=== PATIENT | male | born 1955 | race Caucasian/White ===

== ENCOUNTER 2019-07-21 20:52 | Emergency (ER) | payer BC, MEDICARE ==
[2019-07-21] MEDS ORDERED: Sodium Chloride 0.9% 10 ML Syringe FLUSH PRN (21:12)
[2019-07-21] MEDS ORDERED: Sodium Chloride 0.9% 1,000 ML IV ONE (21:13)
[2019-07-21] MEDS ORDERED: Ketorolac 15 MG/ML SDV IVPUSH ONE (21:13)
[2019-07-21] MEDS ORDERED: HYDROmorphone 1 MG/ML Syringe IVPUSH ONE (21:14)
[2019-07-21] MEDS ORDERED: Iopamidol 612 MG/ML 100 ML Bottle IVPUSH ONE (21:43)
[2019-07-21 21:54] LABS: CHLORIDE,CL 100 mmol/L (98-107); SODIUM,NA 138 mmol/L (136-145)
[2019-07-21] MEDS ORDERED: Take Home: Acetaminophen/HYDROcodone 325-10 MG, 5 Tab Pack PO ONE (22:50)
[2019-07-21] MEDS ORDERED: Tamsulosin 0.4 MG Cap.ER PO ONE (22:50)
--- NOTE | 2019-07-21 23:19 | EDM.PDOC ---
ED HPI GENERAL MEDICAL PROBLEM - General Chief Complaint: Abdominal Pain Stated Complaint: PAIN ON L SIDE OF ABDOMEN Time Seen by Provider: 07/21/19 20:52 Source of Information: Reports: Patient History Limitations: Reports: No Limitations - History of Present Illness INITIAL COMMENTS - FREE TEXT/NARRATIVE: Pt. presents to ER with complaints of L sided flank pain. Pt. states that the discomfort started at around 10 this AM. He states that he had similar pain about a week or 2 ago. Denies any fever or chills. He states that the discomfort is not made worse with palpation or movement. Denies any hematuria, frequency, urgency, or dysuria. No nausea or vomiting. Pt. denies any chest pain or shortness of breath. No cough or chest congestion. No diarrhea. Denies any melena, hematochezia, or hematemesis. Pt. states that the discomfort is sharp, stabbing type pain. He states that he "cannot get comfortable". He denies any history of kidney stones, but has a family history. Onset: Today Onset Date: 07/21/19 Onset Time: 10:00 Location: Reports: Abdomen, Back Quality: Reports: Sharp, Stabbing, Throbbing Severity: Severe left flank, left lateral side Pain Score (Numeric/FACES): 7 - Related Data Allergies Allergy/AdvReac Type Severity Reaction Status Date / Time codeine Allergy Hives Verified 07/21/19 21:08 latex Allergy Hives Verified 07/21/19 21:08 Home Meds: Home Meds Furosemide [Lasix] 20 mg PO DAILY 07/21/19 [History] Lisinopril 20 mg PO DAILY 07/21/19 [History] Metoprolol Tartrate 50 mg PO BID 07/21/19 [History] Multivitamin [Multi-Vitamin Daily] 1 tab PO DAILY 07/21/19 [History] Potassium Chloride 20 meq PO DAILY 07/21/19 [History] Propylene Glycol/Peg 400 [Systane 0.3-0.4% Eye Drops] 1 drop EYEBOTH QID [History] Past Medical History Cardiovascular History: Reports: High Cholesterol, Hypertension Respiratory History: Reports: Pneumonia, Recurrent, Sleep Apnea Musculoskeletal History: Reports: Other (See Below) Other Musculoskeletal History: Degenertive Joint Disease Psychiatric History: Reports: Depression Endocrine/Metabolic History: Reports: Obesity/BMI 30+, Other (See Below) Other Endocrine/Metabolic History: Septic Arthritis - Infectious Disease History Infectious Disease History: Reports: VRE, Other (See Below) Other Infectious Disease History: Aspergillosis ED ROS GENERAL - Review of Systems Review Of Systems: See Below Constitutional: Reports: No Symptoms HEENT: Reports: No Symptoms Respiratory: Reports: No Symptoms Cardiovascular: Reports: No Symptoms Endocrine: Reports: No Symptoms GI/Abdominal: Reports: Abdominal Pain : Reports: Flank Pain, Other (No testicular pain) Musculoskeletal: Reports: No Symptoms Skin: Reports: No Symptoms Neurological: Reports: No Symptoms Psychiatric: Reports: No Symptoms Hematologic/Lymphatic: Reports: No Symptoms Immunologic: Reports: No Symptoms ED EXAM, GENERAL - Physical Exam Exam: See Below Exam Limited By: No Limitations General Appearance: Alert, WD/WN, No Apparent Distress Throat/Mouth: Normal Inspection, Normal Lips, Normal Teeth, Normal Gums, Normal Oropharynx, Normal Voice, No Airway Compromise Respiratory/Chest: No Respiratory Distress, Lungs Clear, Normal Breath Sounds, No Accessory Muscle Use, Chest Non-Tender Cardiovascular: Normal Peripheral Pulses, Regular Rate, Rhythm, No Edema, No Gallop, No JVD, No Rub Peripheral Pulses: 4+: Radial (R) GI/Abdominal: Normal Bowel Sounds, Soft, Non-Tender, No Organomegaly, No Distention, No Mass (Male) Exam: Deferred Rectal (Males) Exam: Deferred Back Exam: Normal Inspection, Full Range of Motion Extremities: Normal Inspection, Normal Range of Motion, Non-Tender, No Pedal Edema, Normal Capillary Refill Neurological: Alert, Oriented, CN II-XII Intact, Normal Cognition, Normal Gait, Normal Reflexes, No Motor/Sensory Deficits Psychiatric: Normal Affect, Normal Mood Skin Exam: Warm, Dry, Intact, Normal Color, No Rash Course - Vital Signs Last Recorded V/S: Last Vital Signs Temp 36.3 C 07/21/19 20:52 Pulse 93 07/21/19 20:52 Resp 18 07/21/19 20:52 BP 167/91 H 07/21/19 20:52 Pulse Ox 93 L 07/21/19 20:52 - Orders/Labs/Meds Orders: Active Orders 24 hr Category Date Time Status Abdomen Pelvis w Cont [CT] Stat Exams 07/21/19 21:41 Taken Sodium Chloride 0.9% [Saline Flush] Med 07/21/19 21:12 Active 10 ml FLUSH ASDIRECTED PRN Peripheral IV Insertion Adult [OM.PC] Routine Oth 07/21/19 21:12 Ordered Medication Orders Sodium Chloride (Saline Flush) 10 ml FLUSH ASDIRECTED PRN PRN Reason: Keep Vein Open Labs: Laboratory Tests 07/21/19 07/21/19 07/21/19 Range/Units 21:05 21:25 21:25 WBC 11.7 H (4.0-10.0) x10^3/uL RBC 5.06 (4.5-6.0) x10^6/uL Hgb 16.0 (14.0-18.0) g/dL Hct 48.3 (40.0-52.0) % MCV 95.5 H (78.0-93.0) fL MCH 31.6 (26.0-32.0) pg MCHC 33.1 (32.0-36.0) g/dL RDW Coeff of Sebasti[place] 14.2 (10.0-15.0) % Plt Count 138 (130-400) x10^3/uL Neut % (Auto) 75.7 (50.0-80.0) % Lymph % (Auto) 10.3 L (25.0-50.0) % [place] % (Auto) 12.5 H (2.0-11.0) % Eos % (Auto) 1.2 (0.0-4.0) % Baso % (Auto) 0.3 (0.2-1.2) % PT 10.8 (10.0-12.8) SEC INR 1.0 L (2.0-3.5) Sodium (136-145) mmol/L Potassium (3.5-5.1) mmol/L Chloride (98-107) mmol/L Carbon Dioxide (21-32) mmol/L Anion Gap (10-20) mmol/L BUN (7-18) mg/dL Creatinine (0.70-1.30) mg/dL Est Cr Clr Drug Dosing mL/min Estimated GFR (MDRD) Glucose (74-106) mg/dL Calcium (8.5-10.1) mg/dL Corrected Calcium (8.5-10.1) mg/dL Magnesium (1.8-2.4) mg/dL Total Bilirubin (0.2-1.0) mg/dL AST (15-37) U/L ALT (16-63) U/L Alkaline Phosphatase (46-116) U/L C-Reactive Protein (<=0.9) mg/dL Total Protein (6.4-8.2) g/dL Albumin (3.4-5.0) g/dL Globulin Albumin/Globulin Ratio Urine Color Yellow (YELLOW) Urine Appearance Clear (CLEAR) Urine pH 7.0 (5.0-8.0) Ur Specific Qulin 1.020 Urine Protein Negative (NEGATIVE) mg/dL Urine Glucose (UA) Negative (NEGATIVE) mg/dL Urine Ketones Negative (NEGATIVE) mg/dL Urine Occult Blood Negative (NEGATIVE) Urine Nitrite Negative (NEGATIVE) Urine Bilirubin Negative (NEGATIVE) Urine Urobilinogen 0.2 (0.2) EU/dL Ur Leukocyte Esterase Negative (NEGATIVE) Urine RBC 0-5 (NOT SEEN) /HPF Urine WBC 0-5 (NOT SEEN) /HPF Ur Squamous Epith Cells Few H (NEGATIVE) /HPF Urine Bacteria Not seen (NEGATIVE) /HPF Urine Mucus Rare H (NEGATIVE) /LPF 07/21/19 Range/Units 21:25 WBC (4.0-10.0) x10^3/uL RBC (4.5-6.0) x10^6/uL Hgb (14.0-18.0) g/dL Hct (40.0-52.0) % MCV (78.0-93.0) fL MCH (26.0-32.0) pg MCHC (32.0-36.0) g/dL RDW Coeff of Sebastián (10.0-15.0) % Plt Count (130-400) x10^3/uL Neut % (Auto) (50.0-80.0) % Lymph % (Auto) (25.0-50.0) % [place] % (Auto) (2.0-11.0) % Eos % (Auto) (0.0-4.0) % Baso % (Auto) (0.2-1.2) % PT (10.0-12.8) SEC INR (2.0-3.5) Sodium 138 (136-145) mmol/L Potassium 4.0 (3.5-5.1) mmol/L Chloride 100 (98-107) mmol/L Carbon Dioxide 30 (21-32) mmol/L Anion Gap 12.0 (10-20) mmol/L BUN 13 (7-18) mg/dL Creatinine 1.1 (0.70-1.30) mg/dL Est Cr Clr Drug Dosing 80.95 mL/min Estimated GFR (MDRD) > 60 Glucose 129 H (74-106) mg/dL Calcium 9.0 (8.5-10.1) mg/dL Corrected Calcium 9.88 (8.5-10.1) mg/dL Magnesium 2.1 (1.8-2.4) mg/dL Total Bilirubin 0.5 (0.2-1.0) mg/dL AST 43 H (15-37) U/L ALT 56 (16-63) U/L Alkaline Phosphatase 72 (46-116) U/L C-Reactive Protein 1.6 H (<=0.9) mg/dL Total Protein 7.2 (6.4-8.2) g/dL Albumin 2.9 L (3.4-5.0) g/dL Globulin 4.3 Albumin/Globulin Ratio 0.67 Urine Color (YELLOW) Urine Appearance (CLEAR) Urine pH (5.0-8.0) Ur Specific Q[place] Urine Protein (NEGATIVE) mg/dL Urine Glucose (UA) (NEGATIVE) mg/dL Urine Ketones (NEGATIVE) mg/dL Urine Occult Blood (NEGATIVE) Urine Nitrite (NEGATIVE) Urine Bilirubin (NEGATIVE) Urine Urobilinogen (0.2) EU/dL Ur Leukocyte Esterase (NEGATIVE) Urine RBC (NOT SEEN) /HPF Urine WBC (NOT SEEN) /HPF Ur Squamous Epith Cells (NEGATIVE) /HPF Urine Bacteria (NEGATIVE) /HPF Urine Mucus (NEGATIVE) /LPF Meds: Medications Generic Name Dose Route Start Last Admin Trade Name Freq PRN Reason Stop Dose Admin Sodium Chloride 10 ml 07/21/19 21:12 Saline Flush FLUSH ASDIRECTED PRN Keep Vein Open Discontinued Medications Generic Name Dose Route Start Last Admin Trade Name Freq PRN Reason Stop Dose Admin Hydrocodone Bitart/Acetaminophen 1 packet 07/21/19 22:50 07/21/19 23:04 Take Home: Acetaminophen/Hydrocodone 325-10mg PO 07/21/19 22:51 1 packet ONETIME ONE Administration Hydromorphone HCl 1 mg 07/21/19 21:14 07/21/19 21:26 Dilaudid IVPUSH 07/21/19 21:15 1 mg ONETIME ONE Administration Sodium Chloride 1,000 mls @ 1,000 mls/hr 07/21/19 21:13 07/21/19 21:25 Normal Saline IV 07/21/19 22:12 1,000 mls/hr .BOLUS ONE Administration Iopamidol 100 ml 07/21/19 21:43 07/21/19 22:11 Isovue-300 (61%) IVPUSH 07/21/19 21:44 100 ml ONETIME ONE Administration Ketorolac Tromethamine 15 mg 07/21/19 21:13 07/21/19 21:28 Toradol IVPUSH 07/21/19 21:14 15 mg ONETIME ONE Administration Tamsulosin HCl 0.4 mg 07/21/19 22:50 07/21/19 23:04 Flomax PO 07/21/19 22:51 0.4 mg ONETIME ONE Administration - Radiology Interpretation Free Text/Narrative:: CT abdomen and pelvis with contrast obtained and showed 6.7 mm kidney stone at L distal ureter. Departure - Departure Time of Disposition: 23:19 Disposition: Home, Self-Care 01 Clinical Impression: Kidney stone on left side - Discharge Information Instructions: Acetaminophen; Hydrocodone tablets or capsules, Kidney Stones, [id number], Tamsulosin capsules Referrals: Natan Wilson MD [Primary Care Provider] - Forms: ED Department Discharge Additional Instructions: [place] 10/325mg 1 every 4-6 hours as needed for pain Ibuprofen 200mg 2 tabs every 6 hours as needed for pain Flomax 0.4mg 1 tab once daily to assist with passage of the stone Strain urine. Collect any stones and bring them in to the clinic for analysis. Drink plenty of fluids. Follow-up with Dr. Wilson in a week. If the pain gets worse and is not helped by the oral medication, return to ER. - Problem List Review Problem List Initiated/Reviewed/Updated: Yes - My Orders Last 24 Hours: My Active Orders 07/21/19 21:12 Sodium Chloride 0.9% [Saline Flush] 10 ml FLUSH ASDIRECTED PRN Peripheral IV Insertion Adult [OM.PC] Routine 07/21/19 21:41 Abdomen Pelvis w Cont [CT] Stat - Assessment/Plan Last 24 Hours: My Active Orders 07/21/19 21:12 Sodium Chloride 0.9% [Saline Flush] 10 ml FLUSH ASDIRECTED PRN Peripheral IV Insertion Adult [OM.PC] Routine 07/21/19 21:41 Abdomen Pelvis w Cont [CT] Stat Plan: Pt. was given IV dilaudid and toradol and a liter of NS on arrival. Pt. reported complete resolution of symptoms. Pt. was advised to stain urine, collect stones and bring them to clinic for evaluation. He was started on flomax 0.4mg once daily. [place] 10/325mg every 4-6 hours as needed for pain. Return to ER if pain is severe and not helped by the oral pain medication.
--- NOTE | 2019-07-22 08:08 | CT ---
[id number] CT/CT Abdomen Pelvis W IV EXAM: CT Abdomen Pelvis W IV CLINICAL DATA: LEFT SIDE ABDOMINAL PAIN COMPARISON: NO PREVIOUS SIMILAR EXAM IS AVAILABLE. FINDINGS: A 6 mm distal left ureteral calculus is seen on image 136, series 2 There is moderate left-sided hydronephrosis There is stranding around the left kidney There is an indeterminate 2 cm hypodensity in the right lobe of the liver on image 63, series 2 This would benefit from follow-up The gallbladder is not distended The liver and spleen, right kidney, adrenals, pancreas, aorta, and pelvis otherwise are unremarkable The pelvis shows no mass or adenopathy There is no evidence of appendicitis The appendix is seen on images 63 through 80, series 2 IMPRESSION: 6 MM DISTAL LEFT URETERAL CALCULUS MODERATE LEFT-SIDED HYDRONEPHROSIS Lux Hurt MD 07/22/19 0807 Thank you for allowing us to participate in the care of your patient.
== END 2019-07-21 23:20 | disposition home or self-care (01) ==
LOC: VM.ED 20:52
DX: N13.2 Hydronephrosis with renal and ureteral calculous obstruction (principal); I10 Essential (primary) hypertension; E66.9 Obesity, unspecified; Z79.899 Other long term (current) drug therapy; Z88.5 Allergy status to narcotic agent; Z91.040 Latex allergy status
CPT/HCPCS: 74177; 80053; 81001; 83735; 85025; 85610; 86140; 96361; 96374; 96375; 99284-25; A9270-GY; J1170; J1885; J7030; Q9967

== ENCOUNTER 2023-09-30 16:33 | Inpatient (IN) | payer MEDICARE, BC ==
[2023-09-30 17:07] LABS: BASOPHILS PERCENT AUTO 0.4 % (0.2-1.2); EOSINOPHILS ABSOLUTE AUTO 0.9 x10^3/uL (0.0-0.5); EOSINOPHILS PERCENT AUTO 10.1 % (0.0-4.0); HEMATOCRIT 50.3 % (40.0-52.0); HEMOGLOBIN 16.3 g/dL (14.0-18.0); IMMATURE GRAN ABSOLUTE AUTO 0.01 x10^3/uL (0.00-0.07); LYMPHOCYTES ABSOLUTE AUTO 1.7 x10^3/uL (1.0-4.8); MEAN CORPUSCULAR HEMOGLOBIN 32.8 pg (26.0-32.0); MEAN CORPUSCULAR HGB CONC 32.4 g/dL (32.0-36.0); MEAN CORPUSCULAR VOLUME 101.2 fL (78.0-93.0); MONOCYTES ABSOLUTE AUTO 1.2 x10^3/uL (0.0-0.8); MONOCYTES PERCENT AUTO 13.5 % (2.0-11.0); NEUTROPHILS ABSOLUTE AUTO 5.3 x10^3/uL (1.8-7.7); NEUTROPHILS PERCENT AUTO 57.9 % (50.0-80.0); PLATELET COUNT,PLT 121 x10^3/uL (130-400); RED BLOOD CELL COUNT 4.97 x10^6/uL (4.5-6.0); WHITE BLOOD CELL COUNT,WBC 9.2 x10^3/uL (4.0-10.0)
[2023-09-30 17:31] LABS: A/G RATIO 0.77; ALANINE AMINOTRANSFERASE,ALT 74 U/L (16-63); ALBUMIN 3.3 g/dL (3.4-5.0); ALKALINE PHOSPHATASE 89 U/L (46-116); ASPARTATE AMNIOTRANSFERASE,AST 58 U/L (15-37); BILIRUBIN TOTAL 0.4 mg/dL (0.2-1.0); BLOOD UREA NITROGEN,BUN 12 mg/dL (7-18); CARBON DIOXIDE,CO2 34 mmol/L (21-32); CHLORIDE,CL 102 mmol/L (98-107); GLUCOSE RANDOM 121 mg/dL (70-99); PRO B-TYPE NATRIUR PEPT,BNPPRO 45 pg/mL (<=125); PROTEIN TOTAL,TP 7.6 g/dL (6.4-8.2); SODIUM,NA 140 mmol/L (136-145)
[2023-09-30 17:44] LABS: ESTIMATED GFR 83 mL/min (>=60)
[2023-09-30] MEDS ORDERED: Albuterol 0.083% 2.5 MG/3 ML Neb Soln INH PRN (19:03)
[2023-09-30 19:18] LABS: C-REACTIVE PROTEIN 1.13 mg/dL (<=0.50); MAGNESIUM 2.1 mg/dL (1.8-2.4); TSH ULTRASENSITIVE 2.051 uIU/mL (0.358-3.74)
[2023-09-30] MEDS: Hypromellose 0.3% Ophth Soln 15 ML Bottle EYEBOTH SCH (21:00)
[2023-09-30] MEDS: Nystatin Crm 30 GM Tube TOP SCH (21:00)
[2023-09-30] MEDS: Levofloxacin 500 MG Tab PO SCH (22:46)
[2023-09-30] MEDS: Furosemide 40 MG/4 ML VIAL IV SCH (22:46)
[2023-09-30] MEDS: Metoprolol Tartrate 50 MG Tab PO SCH (22:47)
[2023-10-01 06:57] LABS: BASOPHILS ABSOLUTE AUTO 0.1 x10^3/uL (0.0-0.2); BASOPHILS PERCENT AUTO 0.6 % (0.2-1.2); EOSINOPHILS PERCENT AUTO 11.3 % (0.0-4.0); HEMATOCRIT 47.9 % (40.0-52.0); HEMOGLOBIN 15.6 g/dL (14.0-18.0); IMMATURE GRAN ABSOLUTE AUTO 0.03 x10^3/uL (0.00-0.07); LYMPHOCYTES ABSOLUTE AUTO 1.5 x10^3/uL (1.0-4.8); LYMPHOCYTES PERCENT AUTO 17.7 % (25.0-50.0); MEAN CORPUSCULAR HEMOGLOBIN 32.8 pg (26.0-32.0); MEAN CORPUSCULAR HGB CONC 32.6 g/dL (32.0-36.0); MEAN CORPUSCULAR VOLUME 100.6 fL (78.0-93.0); MONOCYTES ABSOLUTE AUTO 1.1 x10^3/uL (0.0-0.8); MONOCYTES PERCENT AUTO 12.9 % (2.0-11.0); NEUTROPHILS PERCENT AUTO 57.2 % (50.0-80.0); PLATELET COUNT,PLT 130 x10^3/uL (130-400); RED BLOOD CELL COUNT 4.76 x10^6/uL (4.5-6.0); WHITE BLOOD CELL COUNT,WBC 8.7 x10^3/uL (4.0-10.0)
[2023-10-01 07:18] LABS: APPEARANCE,URINE CLEAR (CLEAR); BILIRUBIN,URINE NEGATIVE (NEGATIVE); COLOR,URINE YELLOW (YELLOW); GLUCOSE,URINE NEGATIVE (NEGATIVE); KETONES,URINE NEGATIVE (NEGATIVE); LEUKOCYTE ESTERASE,URINE NEGATIVE (NEGATIVE); NITRITE,URINE NEGATIVE (NEGATIVE); OCCULT BLOOD,URINE NEGATIVE (NEGATIVE); PH,URINE 6.5 (5.0-8.0); PROTEIN,URINE NEGATIVE (NEGATIVE); UROBILINOGEN,URINE 0.2 EU/dL (0.2)
[2023-10-01 07:32] LABS: A/G RATIO 0.71; ALBUMIN 2.9 g/dL (3.4-5.0); BILIRUBIN TOTAL 0.6 mg/dL (0.2-1.0); CALCIUM 8.8 mg/dL (8.5-10.1); CREATININE 0.9 mg/dL (0.70-1.30); EST CRCL DRUG DOSING (CG) 91.24 mL/min; POTASSIUM,K 3.6 mmol/L (3.5-5.1)
[2023-10-01 07:34] LABS: ANION GAP 7.6 mmol/L (5-15)
[2023-10-01] MEDS ORDERED: Formoterol/Mometasone 200-5 MCG 13 GM Inhaler INH PRN (08:08)
[2023-10-01] MEDS ORDERED: Albuterol 0.083% 2.5 MG/3 ML Neb Soln INH PRN (08:11)
[2023-10-01] MEDS: Potassium Chloride 20 MEQ Tab.ER PO SCH (09:16)
[2023-10-01] MEDS: Lisinopril 20 MG Tab PO SCH (09:16)
[2023-10-01] MEDS: Multivitamin Tab PO SCH (09:16)
[2023-10-01] MEDS: Magnesium Oxide 400 MG Tab PO SCH (09:17)
[2023-10-01] MEDS: Vitamin B Complex Tab PO SCH (09:17)
[2023-10-01] MEDS: Zinc Sulfate 220 MG Cap PO SCH (09:17)
[2023-10-01] MEDS: Acetaminophen 325 MG Tab PO PRN (11:15)
[2023-10-01] MEDS: Enoxaparin 40 MG/0.4 ML Syringe SUBCUT SCH (11:15)
[2023-10-01] MEDS: Miconazole 2% Top Powder 45 GM Container TOP SCH (12:29)
[2023-10-01] MEDS ORDERED: Furosemide 20 MG/2 ML VIAL IV SCH (19:00)
[2023-10-01] MEDS: levoFLOXacin 500 MG, levoFLOXacin 250 MG PO SCH (20:00)
[2023-10-01] MEDS: Sodium Chloride 0.9% 10 ML Syringe FLUSH PRN (20:08)
[2023-10-02 07:14] LABS: BASOPHILS ABSOLUTE AUTO 0.1 x10^3/uL (0.0-0.2); BASOPHILS PERCENT AUTO 0.5 % (0.2-1.2); EOSINOPHILS PERCENT AUTO 11.1 % (0.0-4.0); HEMOGLOBIN 16.5 g/dL (14.0-18.0); IMMATURE GRAN ABSOLUTE AUTO 0.02 x10^3/uL (0.00-0.07); LYMPHOCYTES ABSOLUTE AUTO 1.1 x10^3/uL (1.0-4.8); LYMPHOCYTES PERCENT AUTO 11.8 % (25.0-50.0); MEAN CORPUSCULAR HEMOGLOBIN 32.7 pg (26.0-32.0); MEAN CORPUSCULAR HGB CONC 32.4 g/dL (32.0-36.0); MONOCYTES ABSOLUTE AUTO 1.4 x10^3/uL (0.0-0.8); NEUTROPHILS ABSOLUTE AUTO 5.6 x10^3/uL (1.8-7.7); NEUTROPHILS PERCENT AUTO 61.4 % (50.0-80.0); PLATELET COUNT,PLT 119 x10^3/uL (130-400); RED BLOOD CELL COUNT 5.05 x10^6/uL (4.5-6.0); WHITE BLOOD CELL COUNT,WBC 9.2 x10^3/uL (4.0-10.0)
[2023-10-02 07:47] LABS: A/G RATIO 0.66; ALBUMIN 2.9 g/dL (3.4-5.0); ANION GAP 8.7 mmol/L (5-15); BILIRUBIN TOTAL 0.7 mg/dL (0.2-1.0); C-REACTIVE PROTEIN 1.66 mg/dL (<=0.50); CALCIUM 9.2 mg/dL (8.5-10.1); CREATININE 0.9 mg/dL (0.70-1.30); EST CRCL DRUG DOSING (CG) 91.24 mL/min; MAGNESIUM 2.1 mg/dL (1.8-2.4); POTASSIUM,K 3.7 mmol/L (3.5-5.1); PROTEIN TOTAL,TP 7.3 g/dL (6.4-8.2)
[2023-10-02] MEDS: Furosemide 20 MG/2 ML VIAL IV SCH (08:50)
[2023-10-02] MEDS: Albuterol HFA 18 Gm Inhaler INH PRN (10:38)
[2023-10-02] MEDS: Polyethylene Glycol 3350 Powder 17 GM Packet PO PRN (23:27)
[2023-10-03 08:38] LABS: BASOPHILS PERCENT AUTO 0.5 % (0.2-1.2); EOSINOPHILS ABSOLUTE AUTO 0.9 x10^3/uL (0.0-0.5); HEMATOCRIT 48.8 % (40.0-52.0); HEMOGLOBIN 15.8 g/dL (14.0-18.0); IMMATURE GRAN ABSOLUTE AUTO 0.01 x10^3/uL (0.00-0.07); LYMPHOCYTES PERCENT AUTO 12.4 % (25.0-50.0); MEAN CORPUSCULAR HEMOGLOBIN 32.4 pg (26.0-32.0); MEAN CORPUSCULAR HGB CONC 32.4 g/dL (32.0-36.0); MONOCYTES ABSOLUTE AUTO 1.2 x10^3/uL (0.0-0.8); MONOCYTES PERCENT AUTO 14.7 % (2.0-11.0); NEUTROPHILS ABSOLUTE AUTO 5.2 x10^3/uL (1.8-7.7); NEUTROPHILS PERCENT AUTO 61.3 % (50.0-80.0); PLATELET COUNT,PLT 126 x10^3/uL (130-400); RED BLOOD CELL COUNT 4.88 x10^6/uL (4.5-6.0); WHITE BLOOD CELL COUNT,WBC 8.4 x10^3/uL (4.0-10.0)
[2023-10-03 08:54] LABS: CALCIUM 9.1 mg/dL (8.5-10.1); EST CRCL DRUG DOSING (CG) 82.12 mL/min; POTASSIUM,K 3.9 mmol/L (3.5-5.1)
[2023-10-03 08:55] LABS: ANION GAP 9.9 mmol/L (5-15)
[2023-10-03] MEDS: Furosemide 40 MG/4 ML VIAL IV SCH (13:06)
[2023-10-04 07:10] LABS: A/G RATIO 0.64; ALBUMIN 2.7 g/dL (3.4-5.0); BILIRUBIN TOTAL 0.7 mg/dL (0.2-1.0); CALCIUM 8.8 mg/dL (8.5-10.1); CREATININE 0.9 mg/dL (0.70-1.30); EST CRCL DRUG DOSING (CG) 91.24 mL/min; MAGNESIUM 2.2 mg/dL (1.8-2.4); POTASSIUM,K 3.8 mmol/L (3.5-5.1); PROTEIN TOTAL,TP 6.9 g/dL (6.4-8.2)
[2023-10-04 07:11] LABS: ANION GAP 8.8 mmol/L (5-15)
[2023-10-05 07:14] LABS: A/G RATIO 0.63; ALBUMIN 2.6 g/dL (3.4-5.0); BILIRUBIN TOTAL 0.6 mg/dL (0.2-1.0); CALCIUM 8.6 mg/dL (8.5-10.1); EST CRCL DRUG DOSING (CG) 82.12 mL/min; MAGNESIUM 2.2 mg/dL (1.8-2.4); POTASSIUM,K 3.7 mmol/L (3.5-5.1); PROTEIN TOTAL,TP 6.7 g/dL (6.4-8.2)
[2023-10-05 07:15] LABS: ANION GAP 6.7 mmol/L (5-15)
== END 2023-10-05 14:30 | disposition home or self-care (01) | DRG 728 ==
LOC: VM.ED 16:33 → VM.MS 18:50
PROVIDERS: ADMIT Family Medicine; ATTEND Family Medicine
DX: N49.2 Inflammatory disorders of scrotum (principal); N50.89 Other specified disorders of the male genital organs; I10 Essential (primary) hypertension; E66.9 Obesity, unspecified; Z68.43 Body mass index [BMI] 50.0-59.9, adult; I50.9 Heart failure, unspecified; I11.0 Hypertensive heart disease with heart failure; E66.01 Morbid (severe) obesity due to excess calories; G47.33 Obstructive sleep apnea (adult) (pediatric); Z66 Do not resuscitate; L30.4 Erythema intertrigo; N45.2 Orchitis; R09.02 Hypoxemia; J44.9 Chronic obstructive pulmonary disease, unspecified; E78.00 Pure hypercholesterolemia, unspecified; Z87.01 Personal history of pneumonia (recurrent); Z88.8 Allergy status to other drugs, medicaments and biological substances; Z91.040 Latex allergy status; Z88.5 Allergy status to narcotic agent; Z79.899 Other long term (current) drug therapy; Z98.890 Other specified postprocedural states
CPT/HCPCS: 36415; 51702; 71045; 80048; 80053; 81003; 83605; 83735; 83880; 84145; 84443; 84484; 85025; 86140; 87040; 94640; 94760; 95851-GO; 97110-GO; 97161-GP; 97166-GO; 97535-GO; 97760-GO; 99284; 99285; A9270-GY; J1650; J1940; J3490